=== PATIENT | male | born 1970 | race African-American/Black ===

== ENCOUNTER 2022-12-26 09:52 | Outpatient (CLI) | payer OTHER | END 2022-12-26 09:53 | disposition home or self-care (01) | LOC: DTY/OP 09:52 | PROVIDERS: ATTEND Specialist | DX: E66.01 Morbid (severe) obesity due to excess calories (principal) | CPT/HCPCS: 97802 ==

== ENCOUNTER 2023-04-27 09:30 | Inpatient (IN) | payer MEDICARE, OTHER ==
[2023-05-11 10:02] VITALS: BMI 45.7
[2023-05-12] MEDS ORDERED: Heparin 5,000 UNITS/ML VIAL ONE (06:28)
[2023-05-12] MEDS ORDERED: Ketorolac Tromethamine 30 MG/ML VIAL ONE (06:29)
[2023-05-12] MEDS ORDERED: Acetaminophen 500 MG TAB ONE (06:29)
[2023-05-12] MEDS ORDERED: SUGAMMADEX SODIUM 200 MG/2 ML VIAL ONE (06:42)
[2023-05-12] MEDS ORDERED: Fentanyl 250 MCG/5 ML VIAL ONE ×2 (06:42→10:42)
[2023-05-12] MEDS ORDERED: HYDROmorphone 2 MG/ML VIAL ONE (06:43)
[2023-05-12] MEDS ORDERED: Bupivacaine 0.25% HCL 30 ML VIAL ONE (06:44)
[2023-05-12] MEDS ORDERED: EPINEPHrine 1 MG/ML VIAL ONE (06:44)
[2023-05-12] MEDS ORDERED: Sodium Chloride 0.9% 100 ML ONE (07:11)
[2023-05-12] MEDS ORDERED: CEFAZOLIN 2 GM VIAL ONE (07:11)
[2023-05-12] MEDS ORDERED: Midazolam HCl 2 mg/2 ml Vial ONE (07:16)
[2023-05-12] MEDS ORDERED: Lidocaine 2% PF 5 ML VIAL ONE (07:30)
[2023-05-12] MEDS ORDERED: Labetalol HCl 100 MG/20 ML VIAL ONE ×3 (07:30→14:04)
[2023-05-12] MEDS ORDERED: Rocuronium Bromide 10 MG/ML (10ML VIAL) ONE ×2 (07:30→08:10)
[2023-05-12] MEDS ORDERED: PROPOFOL 40 ML ONE (07:30)
[2023-05-12] MEDS ORDERED: Indocyanine Green 25 MG/10 ML VIAL ONE (07:41)
[2023-05-12] MEDS ORDERED: ePHEDrine Sulfate 50 MG/10 ML VIAL ONE ×3 (08:10→10:00)
[2023-05-12] MEDS ORDERED: Ondansetron PF 4 MG/2 ML Vial ONE (08:10)
[2023-05-12] MEDS ORDERED: Dexamethasone 20 MG/5 ML VIAL ONE (08:10)
[2023-05-12] MEDS ORDERED: Lidocaine 1% PF 5 ML VIAL ONE (08:10)
[2023-05-12] MEDS ORDERED: Glycopyrrolate 0.2 MG/ML 5 ML SYRINGE ONE (08:10)
[2023-05-12] MEDS ORDERED: PROPOFOL 200 MG/20 ML VIAL ONE (08:10)
[2023-05-12] MEDS ORDERED: PHENYLEPHRINE-NS 100 MCG/ML 10 ML SYRINGE ONE (08:10)
[2023-05-12] MEDS ORDERED: Ondansetron HCl/PF 4 MG/2 ML Vial IVP PRN (09:41)
[2023-05-12] MEDS ORDERED: HYDROmorphone 2 MG/ML VIAL SLOW IVP PRN (09:41)
[2023-05-12] MEDS ORDERED: Promethazine HCl 25 MG/ML VIAL IM PRN ×2 (09:41→10:46)
[2023-05-12] MEDS ORDERED: Glucagon 1 MG/ML KIT IM PRN (10:46)
[2023-05-12] MEDS ORDERED: diphenhydrAMINE 50 MG/ML VIAL IVP PRN (10:46)
[2023-05-12] MEDS ORDERED: Morphine 4 MG/ML VIAL SLOW IVP PRN (10:46)
[2023-05-12] MEDS ORDERED: Ondansetron PF 4 MG/2 ML Vial IVP PRN (10:46)
[2023-05-12] MEDS ORDERED: Dextrose 50% Abboject 50 ML SYRINGE SLOW IVP PRN (10:46)
[2023-05-12] MEDS ORDERED: Ipratropium/Albuterol 3 ML NEB NEB PRN (10:46)
[2023-05-12] MEDS ORDERED: Dextrose 5% in Water 1,000 ML IV PRN (10:46)
[2023-05-12] MEDS ORDERED: hydrALAZINE 20 MG/ML VIAL ONE (11:33)
[2023-05-12] MEDS: hydrALAZINE 20 MG/ML VIAL SLOW IVP PRN ×2 (11:35→16:26)
[2023-05-12] MEDS ORDERED: HYDROmorphone 0.5 MG/0.5 ML SYRINGE ONE (12:46)
[2023-05-12] MEDS: Hydrocodone-Acetamin 15 ML UDCUP PO PRN (16:23)
[2023-05-12] MEDS: Gabapentin 300 MG CAP PO SCH ×2 (16:23→21:12)
[2023-05-12] MEDS: Morphine 2 MG/ML VIAL SLOW IVP PRN ×2 (16:24→20:59)
[2023-05-12] MEDS: Ketorolac Tromethamine 30 MG/ML VIAL IVP SCH ×3 (16:25→23:53)
[2023-05-12] MEDS: D5 1/2 NS w/20 mEq KCL 1,000 ML IV SCH ×2 (16:25→16:48)
[2023-05-12] MEDS ORDERED: LABETALOL HCL 300 MG PO SCH (21:00)
[2023-05-12] MEDS ORDERED: IRBESARTAN 150 MG PO SCH (21:00)
[2023-05-12] MEDS: Minoxidil 10 MG TAB PO SCH (21:00)
[2023-05-12] MEDS: DULoxetine 30 MG CAP PO SCH (21:12)
[2023-05-12] MEDS: Labetalol HCl 100 MG TAB PO SCH (21:12)
[2023-05-13] MEDS: D5 1/2 NS w/20 mEq KCL 1,000 ML IV SCH ×2 (01:36→10:25)
[2023-05-13] MEDS: Ketorolac Tromethamine 30 MG/ML VIAL IVP SCH ×2 (05:41→13:20)
[2023-05-13 05:55] LABS: #Monocytes 0.9 thou/uL (0.11-0.59); #Neutrophils 7.1 thou/uL (1.40-6.50); %Basophils 0.2 % (0.0-1.0); %Eosinophils 0.2 % (0.0-10.0); %Lymphocytes 20.7 % (21.0-51.0); %Neutrophils 69.5 % (42.0-75.0); Hematocrit 36.2 % (42.0-52.0); Hemoglobin 12.7 g/dL (14.0-18.0); Mean Corpuscular HGB CONC 35.1 g/dL (32.0-36.0); Mean Corpuscular Hemoglobin 29.5 pg (27.0-31.0); Mean Platelet Volume 11.2 fL (7.4-10.4); Platelet Count 176 10x3/uL (130-400); RBC Distribution Width 11.9 % (11.5-14.5); Red Blood Cell (RBC) Count 4.31 mill/uL (4.70-6.10); White Blood Cell (WBC) Count 10.2 10x3/uL (4.8-10.8)
[2023-05-13 06:29] LABS: Anion Gap 14 mmol/L (10-20); BUN (Urea Nitrogen) 15 mg/dL (8.4-25.7); Carbon Dioxide 24 mmol/L (22-29); Chloride 105 mmol/L (98-107); Potassium 3.7 mmol/L (3.5-5.1); Sodium 139 mmol/L (136-145)
[2023-05-13 06:30] LABS: Calc. Creatinine Clearance 138 mL/min (70-130); Calcium 8.6 mg/dL (7.8-10.44); Estimated GFR 63; Glucose 112 mg/dL (70-105)
[2023-05-13] MEDS ORDERED: Atorvastatin Calcium 40 MG TAB PO SCH (09:00)
[2023-05-13] MEDS ORDERED: Losartan 25 MG TAB PO SCH (09:00)
[2023-05-13] MEDS ORDERED: Pantoprazole 40 MG VIAL IVP SCH (09:00)
[2023-05-13] MEDS: Labetalol HCl 100 MG TAB PO SCH (09:58)
[2023-05-13] MEDS: Minoxidil 10 MG TAB PO SCH (09:59)
[2023-05-13] MEDS: Gabapentin 300 MG CAP PO SCH ×2 (09:59→13:19)
[2023-05-13] MEDS: DULoxetine 30 MG CAP PO SCH (09:59)
[2023-05-13] MEDS: Hydrocodone-Acetamin 15 ML UDCUP PO PRN ×2 (10:02→13:19)
[2023-05-13 16:08] VITALS: BP 130/68; TEMP 98.7
== END 2023-05-13 17:45 | disposition home or self-care (01) | DRG 621 ==
LOC: SURG A 05-12 06:18 → SURG B 05-12 15:40
PROVIDERS: ADMIT Specialist; ATTEND Specialist
PROC: 0DB64Z3 Excision of Stomach, Percutaneous Endoscopic Approach, Vertical (ICD-10-PCS; principal; 2023-05-12)
PROC: 8E0W4CZ Robotic Assisted Procedure of Trunk Region, Percutaneous Endoscopic Approach (ICD-10-PCS; 2023-05-12)
DX: E66.01 Morbid (severe) obesity due to excess calories (principal); Z68.42 Body mass index [BMI] 45.0-49.9, adult; M19.90 Unspecified osteoarthritis, unspecified site; E78.00 Pure hypercholesterolemia, unspecified; G89.29 Other chronic pain; I10 Essential (primary) hypertension; Z96.653 Presence of artificial knee joint, bilateral; Z98.890 Other specified postprocedural states
CPT/HCPCS: 36415; 80048; 85025; 88307; 88342; 94760; C9113; J0171; J0360; J1100; J1170; J1644; J1650; J1885; J2001; J2250; J2272; J2405; J2704; J3010; J3480; J3490; S0020

== ENCOUNTER 2023-04-27 09:57 | Outpatient (CLI) | payer OTHER ==
[2023-04-27 11:33] LABS: #Basophils 0.1 10x3/uL (0.0-0.2); #Eosinphils 0.2 10x3/uL (0.0-0.5); #Monocytes 0.6 10x3/uL (0.0-1.1); #Neutrophils 3.6 10x3/uL (1.5-8.4); %Basophils 0.8 % (0.0-2.0); %Eosinophils 2.8 % (0.0-6.0); %Lymphocytes 37.7 % (18.0-47.0); %Monocytes 8.5 % (0.0-10.0); %Neutrophils 49.6 % (40.0-75.0); Hematocrit 44.8 % (38.8-50.0); Hemoglobin 15.2 g/dL (13.5-17.5); Mean Corpuscular HGB CONC 33.9 g/dL (32.0-36.0); Mean Corpuscular Hemoglobin 28.6 pg (27.0-33.0); Mean Corpuscular Volume 84.4 fl (81.2-95.1); Mean Platelet Volume 12.1 fl (7.4-10.4); Platelet Count 204 10x3/uL (150-450); RBC Distribution Width 11.9 % (11.5-14.5); Red Blood Cell (RBC) Count 5.31 10x6/uL (4.32-5.72); White Blood Cell (WBC) Count 7.3 10x3/uL (3.5-10.5)
[2023-04-27 12:32] LABS: Anion Gap 15 mmol/L (10-20); BUN (Urea Nitrogen) 17 mg/dL (8.4-25.7); Calc. Creatinine Clearance 0 mL/min (70-130); Calcium 9.7 mg/dL (7.8-10.44); Carbon Dioxide 26 mmol/L (22-29); Chloride 104 mmol/L (98-107); Estimated GFR 71; Glucose 92 mg/dL (70-105); Sodium 141 mmol/L (136-145)
== END 2023-04-27 09:58 | disposition home or self-care (01) ==
LOC: LABBT 09:57
PROVIDERS: ATTEND Specialist
DX: Z01.818 Encounter for other preprocedural examination (principal); E66.01 Morbid (severe) obesity due to excess calories
CPT/HCPCS: 80048; 85025; 93005; 93010